=== PATIENT | female | born 1985 | race Two or more races ===

== ENCOUNTER 2024-08-07 07:50 | Emergency (ER) | payer MEDICAID, SELFPAY ==
[2024-08-07 07:51] VITALS: BMI 27.3
[2024-08-07 08:18] VITALS: BP 117/66; PULSE 114; RESP 18; TEMP 39.1; O2SAT 100
--- NOTE | 2024-08-07 08:36 | EDNOTE_ITS ---
<Statement entered by Harika Mejia MD - 08/18/24 19:26> As co-signing physician, I was present and available for consult prn. I concur with the plan and care as documented by the midlevel provider. Upper Respiratory Inf. RME/HPI General Chief Complaint: Flu Like Symptoms Stated Complaint: BACK PAIN, ABD CRAMPS, FEELING TIRED X 2 DAYS Time Seen by Provider: 08/07/24 08:18 Arrival date/time: 08/07/24 07:50 This is a 38-year-old female that comes in with complaints of upper back pain, cough, runny nose, fever, and headache that started yesterday. Patient states she was having some abdominal cramping. Patient denies abdominal pain patient denies any urinary symptoms. Patient denies any lower back pain. Patient denies any sick contacts at home. Related Data Previous Rx's ?Medication ?Instructions ?Recorded levofloxacin 500 mg tablet 500 mg PO QDAY #5 tabs 01/13 (Levaquin) amoxicillin 875 mg-potassium 1 tab PO BID #14 tabs 04/15 clavulanate 125 mg tablet (Augmentin) diphenhydramine HCl 25 mg capsule 25 mg PO TID PRN itc vianca #20 caps 03/08/18 hydrocortisone 2.5 % topical cream 1 applicatio topica l BID #20 grams 03/08/18 ibuprofen 400 mg tablet 400 mg PO Q8H PRN pain #30 t abs 12/01/22 ibuprofen 800 mg tablet 800 mg PO Q6H PRN pain #14 t abs 08/07/24 Allergies Allergy/AdvReac Type Severity Reaction Status Date / Time levofloxacin (From Levaquin) Allergy Severe Rash Verified 08/07/24 07:54 Review of Systems Review of Systems Systems Reviewed: All systems reviewed, normal except as documented Past Medical History Past Medical History CARDIAC: Negative Congestive Heart Failure RESPIRATORY: Negative Chronic Obstructive Pulmonary Disease (COPD) GENITOURINARY: Negative Renal Disease ENDOCRINE: Negative Diabetes Mellitus Type 1 or Diabetes Mellitus Type 2 Social History SMOKING STATUS: Never smoker ED Exam General General appearance: Present alert and in no apparent distress Head Head exam: Present atraumatic Eye Eye exam: Present normal appearance, PERRL and EOMI ENT ENT exam: Present normal exam, normal oropharynx and mucous membranes moist Neck Neck exam: Present normal inspection, full ROM and trachea midline Chest Chest inspection: Present normal inspection and symmetric chest wall rise Respiratory Respiratory exam: Present normal lung sounds bilaterally Cardiovascular Cardiovascular exam: Present regular rate, normal rhythm and normal heart sounds Abdominal Exam Abdominal exam: Present soft Extremities Exam Extremities exam: Present normal inspection and full ROM Back Exam Back exam: Present normal inspection and full ROM Neurological Exam Neurological exam: Present alert, oriented X3 and CN II-XII intact Psychiatric Psychiatric exam: Present normal affect and normal mood Skin Skin exam: Present warm, dry, intact and normal color Course Quality Measures none Orders Category Date Time Status Bedside COVID-19 Antigen Test NOW Care 08/07/24 08:28 Completed Bedside Influenza A&B Antigen Test NOW Care 08/07/24 08:28 Completed Acetaminophen Tab [Tylenol ES Tab] Med 08/07/24 08:28 Discontinued 1,000 mg PO X1 ONE Ibuprofen Tab [Motrin Tab] Med 08/07/24 08:28 Discontinued 800 mg PO X1 ONE Oseltamivir [Tamiflu] Med 08/07/24 08:53 Discontinued 75 mg PO X1 ONE Vital Signs Vital signs: Vital Signs Temperature 102.4 F H 08/07/24 08:18 Pulse Rate 114 H 08/07/24 08:18 Respiratory Rate 18 08/07/24 08:18 Blood Pressure 117/66 08/07/24 08:18 Pulse Oximetry (%) 100 08/07/24 08:18 Oxygen Delivery Method Room Air 08/07/24 08:18 Upper Respiratory Infection MDM Narrative MDM Narrative:: Patient positive for influenza A. I discussed patient lab results and length with patient. Patient encouraged to drink plenty of fluids and rest. Patient told the importance of follow up with primary provider and failure to do so can result in worsening in his condition. Patient verbalizes understanding. Follow up with primary provider in 1-2 days. Come back to ED if symptoms change or worsen Patient data External records reviewed:: [facility] previous records Clinical information provided by:: patient Social determinants that could affect healthcare access:: none Patient has the following chronic illnesses:: none How is presenting disease/condition affected by chronic disease/condition?: no chronic disease Evaluation data The following diagnostics were reviewed and interpreted by me:: lab results Lab and/or radiology exams considered but not ordered:: none Interpretation Summary: see note Medications / Prescriptions Medications or Prescriptions considered but not ordered:: none Medication administrations:: Medication Administration History Discontinued Medications Acetaminophen (Acetaminophen 500 Mg Tablet) 1,000 mg PO X1 ONE Stop: 08/07/24 08:29 Last Admin: 08/07/24 08:47 Dose: 1,000 mg Documented By: VANESA Ibuprofen (Ibuprofen Tab 400 Mg Tablet) 800 mg PO X1 ONE Stop: 08/07/24 08:29 Last Admin: 08/07/24 08:46 Dose: 800 mg Documented By: VANESA Oseltamivir Phosphate (Oseltamivir 75 Mg Capsule) 75 mg PO X1 ONE Stop: 08/07/24 08:54 Last Admin: 08/07/24 09:01 Dose: 75 mg Documented By: VANESA see mar Consultations Consultation(s) initiated? (list below): No Diagnosis Upper Respiratory Differential Diagnosis: upper respiratory infection, otitis media, viral infection and influenza Most likely diagnosis given after review of the tests above:: influenza Admission Indicated Admission indicated?: not indicated Admission Request Was there a request for admission?: No Disposition Plan Disposition Plan: Discharge Discharge Attestation Discharge Attestation: The patient and all family members were given an opportunity to ask questions and understood the discharge instructions. Discharge instructions specifically effects, indications for sooner follow up or return to the emergency department, and the expected course of current diagnosis. Patient condition: Stable Discharge Plan Plan Patient Disposition: HOME (Self Care) Patient condition on transfer: Stable Prescriptions/Referrals Prescriptions/Med Rec: New ibuprofen 800 mg tablet 800 mg PO Q6H PRN (Reason: pain) Qty: 14 0RF No Action levofloxacin [Levaquin] 500 mg tablet 500 mg PO QDAY Qty: 5 0RF amoxicillin-pot clavulanate [Augmentin] 875-125 mg tablet 1 tab PO BID Qty: 14 0RF diphenhydramine HCl 25 mg capsule 25 mg PO TID PRN (Reason: itching) Qty: 20 0RF hydrocortisone 2.5 % cream 1 applicatio TOPICAL BID Qty: 20 0RF Rx Instructions: apply to the rashes ibuprofen 400 mg tablet 400 mg PO Q8H PRN (Reason: pain) Qty: 30 0RF Problem List Clinical Impression: Influenza A Patient/Caregiver Discharge Instructions Discharge Activity: activity as tolerated Education Materials: ED Influenza (Adult) Additional Instructions: Follow up with primary provider in 1-2 days. Come back to ED if symptoms change or worsen. Print Language: English Stand Alone Forms: [employer] Info., Patient Portal Info Letter PA/MANAGER COMMUNICATION Supervising Physician PA/MANAGER COMMUNICATION Supervising Physician: [email or web address]
[2024-08-07] MEDS: IBUPROFEN TAB 400 MG TABLET 800 MG PO (08:46)
[2024-08-07 08:47] VITALS: TEMP 39.1
[2024-08-07] MEDS: ACETAMINOPHEN 500 MG TABLET 1000 MG PO (08:47)
[2024-08-07] MEDS: OSELTAMIVIR 75 MG CAPSULE PO (09:01)
== END 2024-08-07 09:05 | disposition home or self-care (01) ==
LOC: SERX 09:07
PROVIDERS: Emergency Provider Emergency Medicine; PCP Physician Assistant Medical
DX: J10.1 Influenza due to other identified influenza virus with other respiratory manifestations (principal)
CPT/HCPCS: 87400; 87811; 99283; A9270